=== PATIENT | male | born 1970 ===

== ENCOUNTER 2025-06-01 09:23 | Outpatient (AMB) | payer BC, SELFPAY ==
--- NOTE | 2025-06-01 09:26 | A.OFFPC_ITS ---
Vital Signs 06/01/25 09:31 Height 5 ft 6.75 in Weight 187 lb 4 oz BMI 29.5 BP 116/88 Blood Pressure Location Rt brachial Position Sitting Pulse 65 Pulse Source Pulse Oximeter Temp 98.4 F Temp Source Temporal Artery Scan Pulse Oximetry (%) 96 Oxygen Delivery Method Room Air Intake Visit Reasons: [employer] regular appointment Intake Note: Gene presents in the office today to establish care. Allergies No Known Allergies Allergy (Verified 06/01/25 09:28) Medication List - Last Reconciled 06/01/25 by JACKELYN Banegas No Known Home Meds Tobacco use date assessed: 06/01/25 Dental Screening Dental Screen Date: 06/01/25 Did you have a dental visit in the last 12 months?: Yes Did you have a dental problem in the last 6 months where you did not have access to dental care?: No Was dental information given to patient?: Patient has dentist HPI HPI Comments History of Present Illness Details This is a 55-year-old male with a past medical history of elevated blood pressure, umbilical hernia and elevated bilirubin presenting to establish care. He transferred from [facility] primary care. He is due for a physical. The patient has an umbilical hernia. General surgery consult was discussed at his last practice, but he did not actually received the referral information. The hernia causes a little bit of discomfort intermittently, but he denies pain, swelling or redness. He is overweight, and he admits that he needs to work on exercising more and following a healthy diet. He has diastolic prehypertension with blood pressure 116/88 today. He is a nonsmoker. He endorses some fatigue which could be related to inadequate sleep. He goes to sleep late, and his wakes up early so sleep is broken after 3 or 4 hours. No snoring or witnessed apnea. Prior notes indicate he has a history of hyperbilirubinemia consistent with [place]. The patient says he had a colonoscopy in 2021 at [facility]. It was normal, and he was instructed to repeat it in 10 years. He has a skin lesion on the left side of his back for at least the past year. It is not painful. He has no history of skin cancer. ROS: Constitutional: No unexplained weight loss, fever, chills or night sweats. Eyes: No vision changes, blurry vision, double vision, eye pain, eye redness, eye discharge. ENT: No hearing loss, sneezing, congestion, runny nose or sore throat. Respiratory: No shortness of breath, cough or sputum production. Cardiovascular: No chest pain, chest pressure or chest discomfort. No p alpitations or pedal edema. Gastrointestinal: No anorexia, nausea, vomiting or diarrhea. No abdominal pain or blood in stool. Genitourinary: No dysuria, hematuria, urinary frequency. Neurologic: No headache, dizziness, syncope, unilateral weakness, ataxia, numbness or tingling in the extremities. Musculoskeletal: No back pain, weakness or joint swelling Hematologic/Lymphatics: No bleeding or bruising. No painful lymph nodes. Skin: See HPI Endocrine: No cold or heat intolerance. No polyuria or polydipsia. Psychiatric: No depression or anxiety. No SI/HI. Physical exam: Constitutional: Alert, in no distress. Head: Normocephalic. Eyes: Pupils are equal, round and reactive to light. Extraocular muscles intact. Ear, Nose and Throat: Canals clear. TMs normal. Normal nasal mucosa. No nasal discharge. No oral lesions. Neck: Supple, Full range of motion. No lymphadenopathy. No palpable thyroid masses. Respiratory: Clear to auscultation. Cardiovascular: S1 S2 regular. No murmurs. No carotid bruits. Gastrointestinal: Abdomen soft, non-tender, non-distended. Normal bowel sounds. No palpable masses. Genitourinary: Deferred. Neurologic: No focal neurological deficits. Symmetric patellar reflexes. Moves all extremities spontaneously. Sensation intact bilaterally. Skin: 1 cm scaly, rough light brown/higginbotham lesion on the left flank Musculoskeletal: Normal range of motion. He has some stiffness in the MTP joint of the right great toe, but he denies pain, trauma and redness. We discussed this may be arthritis and to monitor. Extremities: Warm and well perfused. No clubbing, cyanosis or edema. Intact peripheral pulses bilaterally. Psychiatric: Normal mood and affect [facility] Medical History (Updated 06/02/25 @ 08:56 by JACKELYN Banegas) Overweight Acid reflux Neoplasm of skin Prehypertension Umbilical hernia Fatigue Routine physical examination Screening for cardiovascular condition Family History (Updated 06/01/25 @ 10:22 by Alana Palm MA) Mother Cardiovascular disease Father Cardiovascular disease Social History (Updated 06/01/25 @ 09:31 by Alana Palm MA) Housing: House Alcohol intake: current Patient Tobacco Use Status: Never used Tobacco e-Cigarette/Vaping Use: Never Used Second Hand Smoke Exposure: Yes service: No Current occupational status: employed Current occupation: [employer] Current occupational exposures/hazards: No Cognitive needs: No Hearing needs: No Vision needs: No Questionnaire PHQ-9 Over the last 2 weeks, how often have you been bothered by any of the following problems? 1. Little interest or pleasure in doing things: not at all 2. Feeling down, depressed, or hopeless: not at all 3. Trouble falling or staying asleep, or sleeping too much: not at all 4. Feeling tired or having little energy: several days 5. Poor appetite or overeating: not at all 6. Feeling bad about yourself - or that you are a failure or have let yourself or your family down: not at all 7. Trouble concentrating on things, such as reading the newspaper or watching television: not at all 8. Moving or speaking so slowly that other people could have noticed. Or the opposite - being so fidgety or restless that you have been moving around a lot more than usual: not at all 9. Thoughts that you would be better off or of hurting yourself in some way: not at all Total score: 1 Depression Screening Interpretation: Negative Depression Screening Done: Yes 28584 - PHQ-9 Billing: Yes Source: Developed by Drs. Clayton Galvez, Alicia Roberts, Arnoldo Biswas and colleagues, with an educational sawyer from [employer]. Thrive Questionnaire Date Thrive assessed: 06/01/25 I am a: Patient What is your living situation today?: I choose not to answer this question Within the past 12 months, did the food you bought not last and you didn't have the money to get more?: I choose not to answer this question Within the past 12 months, did you worry whether your food would run out before you got money to buy more?: I choose not to answer this question Do you have trouble paying for medicines?: I choose not to answer this question Do you have trouble getting transportation to medical appointments?: I choose no t to answer this question Do you have trouble paying your heating and electricity bill?: I choose not to answer this question Do you have trouble taking care of your child, family member or friend?: I choose not to answer this question Do you have trouble with day-to-day activities such as bathing, preparing meals, shopping, managing finances, etc.?: I choose not to answer this question Are you currently unemployed and looking for a job?: No Are you interested in more education?: No Please select the resources that you would like help with: None Currently or been in a relationship where the following occur: No concerns repor wally THRIVE Score: 0 AUDIT C Alcohol Use Questionnaire (AUDIT-C) 1. How often do you have a drink containing alcohol?: 2-3 times a week 2. How many drinks containing alcohol do you have on a typical day when you are drinking?: 1 or 2 3. How often do you have six or more drinks on one occasion?: Less than monthly Total Score: 4 GUERDA-7 AMB Questionnaire GUERDA-7 Date GUERDA - 7 assessed: 06/01/25 Feeling nervous, anxious, or on edge: 0 = Not at all Not being able to stop or control worryin = Not at all Worrying too much about different things: 0 = Not at all Trouble relaxin = Not at all Being so restless that it is hard to sit still: 0 = Not at all Becoming easily annoyed or irritable: 0 = Not at all Feeling afraid as if something awful might happen: 0 = Not at all Total GUERDA-7 score (0-4 normal; 5-9 mild; 10-14 moderate; 15-21 severe): 0 Source: Developed by Drs. Clayton Galvez, Alicia Roberts, Arnoldo Biswas and colleagues, with an educational sawyer from [employer]. GUERDA-7 Assessment Billing GUERDA-7 Assessment Tool: GUERDA-7 Assessment 03513 Physical exam (Primary Care) Vital Signs: Last Vital Signs Temp 98.4 F 06/01/25 09:31 Pulse 65 06/01/25 09:31 BP 116/88 06/01/25 09:31 Pulse Ox 96 06/01/25 09:31 Oxygen Delivery Method Room Air 06/01/25 09:31 BMI result Body Mass Index 29.5 Tobacco/Smoking Status: Tobacco use Status Tobacco use date assessed 06/01/25 06/01/25 09:36 Patient Tobacco Use Status Never used Tobacco 06/01/25 09:36 e-Cigarette/Vaping Use Never Used 06/01/25 09:36 PHQ-9: PHQ-9 Score PHQ-9: Total score 1 06/01/25 09:48 Depression Screening Interpretation: Negative Thrive Assessment: Date of Thrive Assessment Date Thrive assessed 06/01/25 06/01/25 09:36 Currently or been in a relationship where the following occur: No concerns reported Immunizations Boostrix Tdap 2.5 Lf unit-8 mcg-5 Lf/0.5 mL intramuscular syringe Performing Provider: JACKELYN Banegas Performing Location: [facility] [place] [facility] Administered by: Alana Palm MA on 06/01/25 10:06 Dose Route Admin Location Dispensed Lot Number Expiration Date NDC Table Games Supervisor 0.5 mL IM Left Deltoid 0.5 mL [id number] 09/01/27 24859-880-82 [employer] Total Dispensed Waste 0.5 mL 0 % VIS Given Date VIS Provided VIS Publication Date 06/01/25 Single Vaccine 21 Eligibility Eligibility Date Funding Source Not [facility] Eligible 06/01/25 Private Coding Level of Care Code New Pt Level 3 (57312) New Pt Prev Care 40-64y(65221) Diagnoses Screening for cardiovascular condition Z13.6 Routine physical examination Z00.00 Chronic fatigue R53.82 Fatigue type: chronic, unspecified Umbilical hernia without obstruction and without gangrene K42.9 Obstruction and gangrene presence: without obstruction or gangrene Prehypertension R03.0 Neoplasm of skin D49.2 Overweight E66.3 Additional Codes GUERDA-7 Assessment Billing - GUERDA-7 Assessment Tool: GUERDA-7 Assessment 72284 ([id number]) PHQ-9 - 43758 - PHQ-9 Billing: Yes ([id number]) Assessment & Plan Assessment & Plan (1) Screening for cardiovascular condition: Code(s): Z13.6 - Encounter for screening for cardiovascular disorders Category: Medical (2) Routine physical examination: Code(s): Z00.00 - Encounter for general adult medical examination without abnormal findings Category: Medical Plan: Patient is seen today for a routine physical. As part of this visit we reviewed the following issues, which are considered and essential part of preventative health in this age group: - Screening for colon cancer - Discussed Prostate cancer screening - Blood pressure screening - Cholesterol screening - Nutritional and exercise counseling - Counseling of injury prevention including fire prevention, smoke alarms and seat belt usage - Screening for depression - Education about skin cancer - Recommendations about immunizations - Recommendation of an eye exam - Screening for substance abuse (3) Fatigue: Code(s): R53.83 - Other fatigue Category: Medical Qualifiers: Fatigue type: chronic, unspecified Qualified Code(s): R53.82 - Chronic fatigue, unspecified Plan: This may be due to inadequate sleep. Reviewed sleep hygiene. Check labs. (4) Umbilical hernia: Code(s): K42.9 - Umbilical hernia without obstruction or gangrene Category: Medical Qualifiers: Obstruction and gangrene presence: without obstruction or gangrene Qualified Code(s): K42.9 - Umbilical hernia without obstruction or gangrene Plan: Referred to general surgery to discuss elective repair. (5) Prehypertension: Code(s): R03.0 - Elevated blood-pressure reading, without diagnosis of hypertension Category: Medical Plan: He is going to work on weight loss. We discussed lifestyle modifications. Cardiovascular exercise, salt restricted diet and reducing caffeine. He has a blood pressure cuff at work. He will contact the office his blood pressure is greater than 140/90. (6) Neoplasm of skin: Code(s): D49.2 - Neoplasm of unspecified behavior of bone, soft tissue, and skin Category: Medical Plan: Possibly seborrheic keratosis, but we will refer to dermatology for evaluation (7) Overweight: Code(s): E66.3 - Overweight Category: Medical Plan: Patient is going to work on limiting portion sizes and following a low carbohydrate, low sugar diet. He plans to start exercising. Plan Follow up in 1 year for annual physical exam. Orders: Orders Prostate Specific Antigen 06/01/25 R53.83 - Other fatigue, Z00.00 - Encounter for general adult medical examination without abnormal findings, Z12.5 - Encounter for screening for malignant neoplasm of prostate, Z13.6 - Encounter for screening for cardiovascular disorders Lipid Panel 06/01/25 E78.5 - Hyperlipidemia, unspecified, R53.83 - Other fatigue, Z00.00 - Encounter for general adult medical examination without abnormal findings, Z13.6 - Encounter for screening for cardiovascular disorders Complete Blood Count no Diff 07/21/25 R53.83 - Other fatigue, Z00.00 - Encounter for general adult medical examination without abnormal findings, Z13.6 - Encounter for screening for cardiovascular disorders Comprehensive Met. Panel 06/01/25 R5. - Other fatigue, Z00.00 - Encounter for general adult medical examination without abnormal findings, Z13.6 - Encounter for screening for cardiovascular disorders TSH reflex Free T4 06/01/25. - Other fatigue, Z00.00 - Encounter for general adult medical examination without abnormal findings, Z13.6 - Encounter for screening for cardiovascular disorders Vitamin D 25-OH (D2 and D3) 06/01/25 R5.83 - Other fatigue, Z00.00 - Encounter for general adult medical examination without abnormal findings, Z13.6 - Encounter for screening for cardiovascular disorders Vitamin B12 06/01/25 R5.83 - Other fatigue, Z00.00 - Encounter for general adult medical examination without abnormal findings, Z13.6 - Encounter for screening for cardiovascular disorders, Z91.89 - Other specified personal risk factors, not elsewhere classified Testosterone, Free/Total 06/01/25 R53.83 - Other fatigue, Z00.00 - Encounter for general adult medical examination without abnormal findings, Z13.6 - Encounter for screening for cardiovascular disorders TDaP Immunization 06/01/25 Z23 - Encounter for immunization Referrals Dermatology Referral D49.2 - Neoplasm of unspecified behavior of bone, soft tissue, and skin General Surgery Referral K42.9 - Umbilical hernia without obstruction or gangrene
[2025-06-01 09:31] VITALS: BP 116/88; PULSE 65; TEMP 36.9; O2SAT 96; BMI 29.5
== END 2025-06-01 10:20 | disposition home or self-care (01) ==
LOC: HO.HMCFM 09:24
PROVIDERS: PCP Physician Assistant Medical; Visit Provider Physician Assistant Medical
DX: Z23 Encounter for immunization (principal)

== ENCOUNTER → 2025-06-01 09:23 | Outpatient (BNVA) | payer BC, SELFPAY | PROVIDERS: PCP Physician Assistant Medical; Visit Provider Physician Assistant Medical | DX: Z00.00 Encounter for general adult medical examination without abnormal findings (principal); Z23 Encounter for immunization; R53.82 Chronic fatigue, unspecified; K42.9 Umbilical hernia without obstruction or gangrene; R03.0 Elevated blood-pressure reading, without diagnosis of hypertension; D49.2 Neoplasm of unspecified behavior of bone, soft tissue, and skin; E66.3 Overweight; Z68.29 Body mass index [BMI] 29.0-29.9, adult; Z13.31 Encounter for screening for depression; Z13.30 Encounter for screening examination for mental health and behavioral disorders, unspecified | CPT/HCPCS: 90471; 90715; 96127 ==

== ENCOUNTER 2025-06-01 10:36 | Outpatient (REF) | payer BC, SELFPAY ==
[2025-06-01 14:17] LABS: Hematocrit 47.6 % (42.0-52.0); Hemoglobin 16.8 g/dl (14.0-18.0); Mean Corpuscular HGB Conc 35.3 g/dl (31.0-36.0); Mean Corpuscular Hemoglobin 32.6 pg (27.0-33.0); Mean Corpuscular Volume 92.2 fL (80.0-98.0); NRBC Abs Auto 0.000 X10*3/uL (0.0-0.012); NRBC Pct Auto 0.0 /100WBC (0.0-0.2); Platelet Count 232 X10*3/uL (160-400); Red Blood Count 5.16 X10*6/uL (4.60-5.80); White Blood Count 6.0 X10*3/uL (4.8-10.8)
[2025-06-01 14:36] LABS: Alanine Aminotransferase 32 U/L (0-40); Albumin Level 4.5 g/dL (3.5-5.0); Alkaline Phosphatase 70 U/L (39-117); Anion Gap 13 (12-20); Aspartate Amino Transferase 24 U/L (5-37); Blood Urea Nitrogen 14 mg/dL (9-16); Calcium 9.6 mg/dL (8.4-10.2); Carbon Dioxide 29 mmol/L (22-29); Chloride 105 mmol/L (96-108); Cholesterol 213 mg/dL (<200); Estimated Glomerular Filt Rate > 60; HDL Cholesterol 54 mg/dL (>40); Potassium 4.2 mmol/L (3.3-5.1); Sodium 143 mmol/L (135-145); Total Protein 6.9 g/dL (6.5-8.0); Triglycerides 58 mg/dL (<150)
[2025-06-01 14:57] LABS: Prostate Specific Antigen 0.85 ng/mL (<0.05-4.0); Vitamin B12 167 pg/mL (200-900)
[2025-06-05 19:22] LABS: Testosterone, Free 47.9 pg/mL (35.0-155.0)
[2025-06-06 15:03] LABS: Vitamin D 25-OH, D2 <4 ng/mL; Vitamin D 25-OH, D3 27 ng/mL; Vitamin D 25-OH, Total 27 ng/mL (30-100)
== END 2025-06-01 10:37 | disposition home or self-care (01) ==
LOC: HO.WFDLDS 10:36
PROVIDERS: Visit Provider Physician Assistant Medical
DX: Z00.00 Encounter for general adult medical examination without abnormal findings (principal); R53.83 Other fatigue; Z13.6 Encounter for screening for cardiovascular disorders; E78.5 Hyperlipidemia, unspecified; Z12.5 Encounter for screening for malignant neoplasm of prostate
CPT/HCPCS: 36415; 80053; 80061; 82306; 82607; 84153; 84402; 84403; 84443; 85027

== ENCOUNTER 2025-10-02 11:32 | Outpatient (REF) | payer BC, SELFPAY ==
[2025-10-02 15:34] LABS: Folate 9.1 ng/mL (> or = 4.0); Vitamin B12 162 pg/mL (200-900)
[2025-10-02 20:11] LABS: Cholesterol 223 mg/dL (<200); HDL Cholesterol 52 mg/dL (>40); Triglycerides 54 mg/dL (<150)
[2025-10-03 08:50] LABS: HBS Num1 21.25 mIU/mL (0-7.99); HBc Num1 0.08 S/CO (0.00-0.79); HBsAGNum1 0.54 S/CO (0.00-0.99); Hepatitis A Antibody IgM 0.21 Index (0-0.79); Hepatitis B Surface Antigen Negative (Negative); ~HepC Num1 0.07 S/CO (0.00-0.79); ~Hepatitis A Antibody IgM Nonreactive (Nonreactive); ~Hepatitis B Surface Antibody REACTIVE (Nonreactive); ~Hepatitis C Antibody Nonreactive (Nonreactive)
[2025-10-03 09:40] LABS: Hepatitis A Antibody IgM 0.12 Index (0-0.79); ~Hepatitis A Antibody IgM Nonreactive (Nonreactive)
[2025-10-07 14:33] LABS: Vitamin D 25-OH, D2 <4 ng/mL; Vitamin D 25-OH, D3 25 ng/mL; Vitamin D 25-OH, Total 25 ng/mL (30-100)
== END 2025-10-02 11:33 | disposition home or self-care (01) ==
LOC: HO.WFDLDS 11:32
PROVIDERS: Visit Provider Physician Assistant Medical
DX: Z01.84 Encounter for antibody response examination (principal); E53.8 Deficiency of other specified B group vitamins; E80.4 Gilbert syndrome; R73.01 Impaired fasting glucose; D64.9 Anemia, unspecified; E78.5 Hyperlipidemia, unspecified; E55.9 Vitamin D deficiency, unspecified; M85.80 Other specified disorders of bone density and structure, unspecified site; R73.9 Hyperglycemia, unspecified
CPT/HCPCS: 36415; 80061; 82306; 82607; 82746; 83036; 86704; 86706; 86709; 86803; 87340